=== PATIENT | male | born 1975 ===

== ENCOUNTER 2016-05-31 21:26 | Emergency (ER) | payer OTHER ==
[2016-05-31 21:28] VITALS: RESP 20
[2016-05-31 21:58] LABS: BASO % 0.2 % (0.0-2.0); EOS % 0.3 % (0.0-4.0); HEMATOCRIT 48.3 % (35.0-51.0); LYMPH # 1.1 K/uL (1.0-4.3); LYMPH % 11.1 % (20.0-40.0); MEAN CELL VOLUME 85.5 fL (80.0-94.0); MEAN CORPUSCULAR HEMOGLOBIN 28.9 pg (27.0-31.0); MEAN CORPUSCULAR HGB CONC 33.9 g/dL (33.0-37.0); MEAN PLATELET VOLUME 10.7 fL (7.2-11.7); MONO # 0.8 K/uL (0.0-0.8); MONO % 8.1 % (0.0-10.0); NRBC % 0.1 % (0.0-2.0); RED CELL DISTRIBUTION WIDTH 13.6 % (11.5-14.5); WHITE BLOOD COUNT 10.1 K/uL (4.8-10.8)
[2016-05-31 22:06] LABS: CHLORIDE 96 mmol/L (98-107); SODIUM 137 mmol/L (132-148)
[2016-05-31 22:07] LABS: POTASSIUM 3.2 mmol/L (3.6-5.2)
[2016-05-31 22:08] LABS: AMYLASE 93 U/L (30-110)
[2016-05-31 22:09] LABS: ALB/GLOB RATIO 1.4 (1.0-2.1); ALKALINE PHOSPHATASE 99 U/L (38-126); ALT/SGPT 49 U/L (21-72); AST/SGOT 60 U/L (17-59); BILIRUBIN,TOTAL 1.1 mg/dL (0.2-1.3); BLOOD UREA NITROGEN 15 mg/dL (9-20); CALCIUM 8.2 mg/dl (8.6-10.4); CARBON DIOXIDE 24 mmol/L (22-30); GFR AFRICAN-AMERICAN > 60; GLUCOSE,RANDOM 135 mg/dL (75-110); TOTAL PROTEIN 6.9 g/dL (6.3-8.3)
[2016-05-31] MEDS ORDERED: Sodium Chloride 0.9% 1,000 ML ONE (22:18)
[2016-05-31] MEDS ORDERED: Sodium Chloride 0.9% 1,000 ML IV ONE (22:24)
--- NOTE | 2016-05-31 22:46 | C.PDOC ---
History Of Present Illness 40 y/o male presents to ED with complaint of abdominal pain associated with multiple episodes of vomiting and diarrhea since this morning. Patient states he ate some left over food last night which he thinks may be causing symptoms. Denies fever, chills, or any other associated symptoms. Denies recent travel or sick contacts. Time Seen by Provider: 05/31/16 21:44 Chief Complaint (Nursing): Abdominal Pain History Per: Patient History/Exam Limitations: no limitations Onset/Duration Of Symptoms: Hrs Current Symptoms Are (Timing): Still Present Location Of Pain/Discomfort: Diffuse Radiation Of Pain To:: None Quality Of Discomfort: "Pain" Associated Symptoms: Vomiting, Diarrhea. denies: Fever, Back Pain, Urinary Symptoms Recent travel outside of the [place]: No Past Medical History Reviewed: Historical Data, Nursing Documentation, Vital Signs Vital Signs: Last Vital Signs Temp 97.8 F 06/01/16 00:27 Pulse 66 06/01/16 00:27 Resp 20 06/01/16 00:27 BP 160/70 H 06/01/16 00:27 Pulse Ox 100 06/01/16 00:27 - Medical History PMH: Anxiety, HTN - [facility] Procedures RESECTION OF GALLBLADDER, PERCUTANEOUS ENDOSCOPIC APPROACH (03/27/16) Family History: States: Unknown Family Hx - Social History Hx Alcohol Use: No Hx Substance Use: No - Immunization History Hx Tetanus Toxoid Vaccination: No Hx Influenza Vaccination: No Hx Pneumococcal Vaccination: No Review Of Systems Except As Marked, All Systems Reviewed And Found Negative. Constitutional: Negative for: Fever, Chills Cardiovascular: Negative for: Chest Pain Respiratory: Negative for: Cough Gastrointestinal: Positive for: Vomiting, Abdominal Pain, Diarrhea Genitourinary: Negative for: Dysuria Skin: Negative for: Rash Physical Exam - Physical Exam Appears: Non-toxic, No Acute Distress Skin: Normal Color, Warm, Dry Head: Atraumatic, Normacephalic Oral Mucosa: Moist Chest: Symmetrical Cardiovascular: Rhythm Regular Respiratory: Normal Breath Sounds, No Rales, No Rhonchi, No Wheezing Gastrointestinal/Abdominal: Bowel Sounds (increased), Soft, Tenderness (mild, diffuse ), No Distention, No Guarding, No Rebound Back: No CVA Tenderness Extremity: Normal ROM, Capillary Refill (< 2 sec. ) Neurological/Psych: Oriented x3, Normal Speech, Normal Cognition ED Course And Treatment - Laboratory Results Result Diagrams: 05/31/16 21:55 05/31/16 21:55 O2 Sat by Pulse Oximetry: 97 (RA) Pulse Ox Interpretation: Normal Progress Note: Treated with Zofran, Toradol, Pepcid, IVFs. Labs and UA ordered, reviewed. Patient given KCl PO. On reassessment, patient is resting comfortably , and is in no acute distress. Patient instructed to follow up with clinic/PMD within 1-2 days. Return precautions given Disposition Counseled Patient/Family Regarding: Diagnosis, Need For Followup, Rx Given - Disposition Referrals: Gabrielle Rdz MD [Family Provider] - Disposition: HOME/ ROUTINE Disposition Time: 00:15 Condition: GOOD Additional Instructions: Please follow up with PMD Clear liquid diet Avoid dairy, solid foods x 2 days Return to ER if worse Prescriptions: Ondansetron [Zofran Odt] 4 mg PO TID #10 odt Instructions: Gastroenteritis (ED) - Clinical Impression Clinical Impression: Gastroenteritis - PA / ANIMAL RIDE MANAGER / Resident Statement MD/DO has reviewed & agrees with the documentation as recorded. - Scribe Statement The provider has reviewed the documentation as recorded by the Domingoibmasood Zhang Provider Scribe Attestation: All medical record entries made by the Eddi were at my direction and personally dictated by me. I have reviewed the chart and agree that the record accurately reflects my personal performance of the history, physical exam, medical decision making, and the department course for this patient. I have also personally directed, reviewed, and agree with the discharge instructions and disposition.
[2016-05-31] MEDS ORDERED: Potassium Chloride 10 mEq ER Tab PO STA (23:03)
[2016-05-31] MEDS ORDERED: Potassium Chloride 20 mEq ER Tab PO ONE (23:09)
[2016-05-31 23:41] LABS: RBC URINE 1 /hpf (0-3); URINE BACTERIA OCC (<OCC); URINE BILIRUBIN NEGATIVE (NEGATIVE); URINE BLOOD NEGATIVE (NEGATIVE); URINE COLOR Yellow (YELLOW); URINE GLUCOSE (UA) NORMAL (Normal); URINE KETONE TRACE mg/dL (NEGATIVE); URINE LEUKOCYTE ESTERASE NEG Leu/uL (Negative); URINE PROTEIN NEGATIVE (NEGATIVE); URINE UROBILINOGEN NORMAL mg/dL (0.2-1.0); WBC URINE 3 /hpf (0-5)
[2016-06-01 00:28] VITALS: BP 160/70; PULSE 66; TEMP 97.8
[2016-06-01 01:47] VITALS: O2SAT 97
== END 2016-06-01 00:28 | disposition home or self-care (01) ==
LOC: C.ER 21:26
DX: K52.9 Noninfective gastroenteritis and colitis, unspecified (principal); E87.6 Hypokalemia
CPT/HCPCS: 80053; 81001; 82150; 83690; 85025; 96361; 96374; 96375; 96376; 99284; J1885; J2405; J7040